=== PATIENT | male | born 1960 | race Two or more races ===

== ENCOUNTER 2020-05-10 23:29 | Emergency (ER) | payer OTHER ==
[2020-05-10] MEDS ORDERED: Ketorolac 30 MG/ML SDV IM ONE (23:44)
[2020-05-10] MEDS: Ibuprofen 600 MG Tab ONE ×2 (23:51→23:53)
[2020-05-10] MEDS ORDERED: Ibuprofen 600 MG Tab PO ONE (23:52)
--- NOTE | 2020-05-11 00:21 | CT ---
INDICATION: Right posterior headache TECHNIQUE: CT Head without i.v. contrast. COMPARISON: None FINDINGS: CSF space: The ventricles are normal for age. Brain: No evidence of mass, acute infarction or hemorrhage is seen. No mass-effect or midline shift is seen. The brain parenchyma is otherwise normal in appearance with preservation of the ring-white matter junction. Calvarium: The visualized paranasal sinuses are well aerated. The mastoid air cells are clear. The visualized orbits are grossly unremarkable. The calvarium is unremarkable in appearance with no fractures identified. IMPRESSION: 1. No evidence of acute infarction, intracranial hemorrhage, or mass-effect seen. Please note that all CT scans at this facility use dose modulation, iterative reconstruction, and/or weight-based dosing when appropriate to reduce radiation dose to as low as reasonably achievable. Dictated by: Refugio Lyn MD @ 05/11/2020 00:20:34 (Electronically Signed)
--- NOTE | 2020-05-11 00:30 | EDM.PDOC ---
ED HPI GENERAL MEDICAL PROBLEM - General Chief Complaint: Headache Stated Complaint: HEADACHE Time Seen by Provider: 05/10/20 23:44 - History of Present Illness INITIAL COMMENTS - FREE TEXT/NARRATIVE: HISTORY AND PHYSICAL: History of present illness: This a 60-year-old gentleman with no history significant for hypertension, diabetes, liver, lung, kidney problems who presents to the ER today secondary to headache that he has been experiencing ever since his mother around [facility] [employer]. Patient denies any recent fevers, shakes, chills, nausea, vomiting, diarrhea, dysuria, frequency, urgency, double vision, blurred vision, slurred speech, neurological deficits, weakness to his upper or lower extremities. Patient reports that the pain is in his right posterior occiput and feels like a sharp stabbing pain that sometimes radiates to the front of his scalp. Patient reports that prior to his mother passing away he never received headaches. Patient reports that the headaches lasted for several weeks and then resolved and over the last couple weeks the headaches have returned. He reports he has an appointment next Saturday with his primary care physician for evaluation of this. Patient is concerned regarding possibility of aneurysms so came to the ER for further evaluation. Patient reports that this is not the worst headache of his life. He does not describe it as a thunderclap headache he reports that the headache comes on gradually and disappears. He denies any exacerbating factors other than possibly watching too much TV at night. He reports that he has tried to cut back the amount of TV BCs noticed that his headache precipitates while he is watching TV. Review of systems: As per history of present illness and below otherwise all systems reviewed and negative. Past medical history: As per history of present illness and as reviewed below otherwise noncontributory. Surgical history: As per history of present illness and as reviewed below otherwise noncontributory. Social history: No reported history of drug or alcohol abuse. Family history: As per history of present illness and as reviewed below otherwise noncontributory. Physical exam: Constitutional: Patient is oriented to person, place, and time. Appears well- developed and well-nourished. No distress. HEENT: Moist mucous membranes Head: Normocephalic and atraumatic Eyes: Right eye exhibits no discharge. Left eye exhibits no discharge. No scleral icterus, pupils equal round reactive to light, extraocular motions intact Neck: Normal range of motion. No tracheal deviation present. Cardiovascular: Normal rate and regular rhythm. Pulmonary: Effort normal, no respiratory distress. Abdominal: No distention Musculoskeletal: Normal range of motion Neuro: A&Ox3. Cranial nerves II-XII grossly intact, 5/5 strength to bilateral upper and lower extremities, sensation intact to bilateral upper and lower extremities, no nystagmus, PERRLA, EOMI, normal speech, proprioception intact to bilateral lower extremities, normal finger to nose test, gait normal Skin: [place], warm and dry. Psychiatric: Normal mood and affect. Behavior is normal. Judgment and thought content normal. Nursing note and vital signs have been reviewed Diagnostics: CT scan head without any pathology. Therapeutics: Patient reports took ibuprofen prior to arrival and is declined any medication here in the ED. Assessment and plan: 60-year-old gentleman who presents ER today secondary to headache has been intermittent since [facility] [employer]. Patient's CT scan in the ED are normal. Patient's vital signs are all within normal limits. Patient be discharged home with instructions to follow-up with his primary care physician as scheduled on Saturday. Patient was advised to try to avoid all TV and strain on the eyes. Reassessment at the time of disposition demonstrates that the patient is in no acute distress. The patient has remained stable throughout the entire ED visit and is without objective evidence for acute process requiring urgent intervention or hospitalization. The patient is stable for discharge, counseling is provided as documented above, discussed symptomatic treatment and specific conditions for return. I have spoken with the patient/caregiver and discussed todays findings, in addition to providing specific details for the plan of care. Questions are answered and there is agreement with the plan. Definitive disposition and diagnosis as appropriate pending reevaluation and review of above. 8:31 PM, 05/11/2020 Follow-up phone call made to your patient with continuity of care. Patient reports he feels improved and has an appointment Saturday with his PCP. Lower Posterior Head Pain Score (Numeric/FACES): 2 - Related Data Allergies Allergy/AdvReac Type Severity Reaction Status Date / Time No Known Allergies Allergy Verified 05/10/20 23:43 Home Meds: Home Meds Ginkgo Biloba 1 tab PO DAILY 08/06/14 [History] Terbinafine HCl [Lamisil] 1 tab PO DAILY 08/06/14 [History] Multivitamin with Minerals [Multiple Vitamin] 1 tab PO DAILY 08/10/14 [History] Past Medical History - Past Health History Medical/Surgical History: Denies Medical/Surgical History - Infectious Disease History Infectious Disease History: Reports: Chicken Pox, Mumps Social & Family History - Family History Family Medical History: No Pertinent Family History - Tobacco Use Tobacco Use Status *Q: Never Tobacco User - Caffeine Use Caffeine Use: Reports: Coffee - Recreational Drug Use Recreational Drug Use: No ED ROS GENERAL - Review of Systems Review Of Systems: See Below ED EXAM, GENERAL - Physical Exam Exam: See Below Course - Vital Signs Last Recorded V/S: Last Vital Signs Temp 97.2 F 05/11/20 00:40 Pulse 66 05/11/20 00:40 Resp 18 05/11/20 00:40 BP 160/96 H 05/11/20 00:40 Pulse Ox 97 05/11/20 00:40 - Orders/Labs/Meds Meds: Medications Discontinued Medications Generic Name Dose Route Start Last Admin Trade Name Gabriela PRN Reason Stop Dose Admin Ibuprofen Confirm 05/10/20 23:49 05/10/20 23:53 Motrin Administered 05/10/20 23:50 Not Given Dose 600 mg .ROUTE .STK-MED ONE Ibuprofen 600 mg 05/10/20 23:52 05/10/20 23:53 Motrin PO 05/10/20 23:53 Not Given ONETIME ONE Ketorolac Tromethamine 30 mg 05/10/20 23:44 05/10/20 23:51 Toradol IM 05/10/20 23:45 Not Given ONETIME ONE Departure - Departure Time of Disposition: 00:29 Disposition: Home, Self-Care 01 Condition: Good Clinical Impression: Tension-type headache - Discharge Information Instructions: General Headache Without Cause Referrals: PCP,None [Primary Care Provider] - Forms: ED Department Discharge Additional Instructions: Your seen and evaluated in the ER today secondary to your headache. You have been given a copy of your CT scan to take to your doctor next week. Please get plenty rest, avoid watching too much TV or reading small print books or anything else that might cause strain in your eyes. You can take ibuprofen and Tylenol as needed for your headache. The following information is given to patients seen in the emergency department who are being discharged to home. This information is to outline your options for follow-up care. We provide all patients seen in our emergency department with a follow-up referral. The need for follow-up, as well as the timing and circumstances, are variable depending upon the specifics of your emergency department visit. If you don't have a primary care physician on staff, we will provide you with a referral. We always advise you to contact your personal physician following an emergency department visit to inform them of the circumstance of the visit and for follow-up with them and/or the need for any referrals to a consulting specialist. The emergency department will also refer you to a specialist when appropriate. This referral assures that you have the opportunity for follow-up care with a specialist. All of these measure are taken in an effort to provide you with optimal care, which includes your follow-up. Under all circumstances we always encourage you to contact your private physician who remains a resource for coordinating your care. When calling for follow-up care, please make the office aware that this follow-up is from your recent emergency room visit. If for any reason you are refused follow-up, please contact the [facility] Emergency Department at and asked to speak to the emergency department charge nurse. [facility] - [facility] [address] [place] [id number] [facility] [address] [place] [id number] Sepsis Event Note (ED) - Evaluation Sepsis Screening Result: No Definite Risk
[2020-05-11 00:45] VITALS: BP 160/96; PULSE 66
== END 2020-05-11 00:40 | disposition home or self-care (01) ==
LOC: MW.ED 23:29
DX: G44.209 Tension-type headache, unspecified, not intractable (principal)
CPT/HCPCS: 70450; 70450-26; 99283-25

== ENCOUNTER 2020-07-24 18:29 | Emergency (ER) | payer OTHER ==
[2020-07-24] MEDS ORDERED: Aspirin 81 MG Tab.Chew PO ONE (19:41)
[2020-07-24 20:27] LABS: BLOOD UREA NITROGEN,BUN 22 mg/dL (7.0-18.0); CHLORIDE,CL 103 mmol/L (98-107); GLUCOSE RANDOM 100 mg/dL (74-106); POTASSIUM,K 4.4 mmol/L (3.5-5.1); SODIUM,NA 138 mmol/L (136-148)
--- NOTE | 2020-07-24 20:57 | CR ---
HISTORY: Shortness of breath. TECHNIQUE: Portable frontal view of the chest. COMPARISON: None. FINDINGS: No airspace consolidation. Eventration of the right hemidiaphragm. No pleural effusion or pneumothorax. Pulmonary vasculature is within normal limits. Cardiomediastinal silhouette size is normal. Tortuous thoracic aorta. IMPRESSION: No acute cardiopulmonary abnormality. Dictated by Mark Parra MD @ Jul 24 2020 8:53PM Signed by Dr. Mark Parra @ Jul 24 2020 8:55PM
--- NOTE | 2020-07-24 21:19 | EDM.PDOC ---
ED HPI GENERAL MEDICAL PROBLEM - General Chief Complaint: Upper Extremity Injury/Pain Stated Complaint: PAIN IN LEFT ARM Time Seen by Provider: 07/24/20 19:07 - History of Present Illness INITIAL COMMENTS - FREE TEXT/NARRATIVE: CHIEF COMPLAINT(S): Left arm pain HISTORY OF PRESENT ILLNESS: This is a 60-year-old man with a past medical history of hypertension and migraine headaches who comes to the emergency department with a chief complaint of left arm pain. The patient states that he started to experience pain in his left arm located throughout his whole arm which he describes as sharp and achy intermittent with squeezing sensation in his bicep and forearm. He states that he tried to sleep and he was able to and it improved on its own however today while he was working out he had to stop because the pain worsened. He states that he normally does 20 to 25-minute workouts however around 18 minutes into the workout his arm pain worsened so bad that he had to stop. He denies any chest pain but felt some discomfort radiate from his left arm into the left side of his chest. He states that when he stopped working out the pain went away and then it returned again. He denies any diaphoresis, nausea or vomiting. He states that he did try 800 mg of ibuprofen for pain relief. He states that movement does not seem to really seem to exacerbate it. He denies any numbness, tingling or weakness. 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 He denies any history of diabetes mellitus, CAD, CHF, COPD or asthma. He denies any recent travel or recent surgery denies any history of PE or DVT. He states that he does not know if CAD or CHF runs in his family however everybody does have cancer as he has lost 5 siblings and his parents to cancer. These cancers include pancreatic and lung cancer. He denies any weight loss or night sweats. REVIEW OF SYSTEMS: Constitutional: Denies fever, chills. Eyes: Denies eye pain Ears, Nose, Mouth, & Throat: Denies earache Cardiovascular: Denies chest pain Respiratory: Denies shortness of breath Gastrointestinal: Denies Nausea, vomiting, diarrhea, hematochezia. Genitourinary: Denies hematuria Skin:Denies a rash MSK: Positive for left arm pain. Neurological: Denies blurred vision Psychiatric: Denies depression PAST MEDICAL HISTORY: As per history of present illness and as reviewed below otherwise noncontributory. SURGICAL HISTORY: As per history of present illness and as reviewed below other rivera noncontributory. SOCIAL HISTORY: As per history of present illness and as reviewed below otherwise noncontributory. FAMILY HISTORY: As per history of present illness and as reviewed below other rivera noncontributory. EXAMINATION OF ORGAN SYSTEMS/BODY AREAS: Constitutional: Blood pressure was 145/86, heart rate 67, respiratory rate 18 with an oxygen saturation of 96% on room air. Temperature 36.1 General: Overall well-appearing man who is in no acute distress. Psychiatric: Appropriate mood and affect. Eyes: No scleral icterus or conjunctival erythema ENMT: Moist mucous membranes. No pharyngeal erythema Cardiovascular: Regular, rate, and rhythm. No gallops, murmurs, or rubs. Bilateral upper extremity pulses symmetric and intact. No peripheral edema. No JVD. Respiratory: Lungs clear to auscultation bilaterally. No wheezes, rales, or rhonchi. Gastrointestinal: Soft, non-tender, non-distended. Normoactive bowel sounds Genitourinary: No suprapubic tenderness Musculoskeletal: Normal range of motion. There is no obvious tenderness of the forearm or arm when palpating. No obvious deformity. No overlying skin changes. Patient has full range of motion of all of his joints in his upper extremities. Skin: No lesions or abrasions. Neurological: Alert, GCS 15 strength and sensation grossly intact. MEDICAL DECISION MAKING AND COURSE IN THE ED WITH INTERPRETATION/REVIEW OF DIAGNOSTIC STUDIES: This is a 60-year-old man with a past medical history of hypertension who comes to the emergency department with acute onset exertional left arm pain which is relieved at rest. At this time given that the patient has just recently had a new job which is requiring lifting this could be musculoskeletal however there is a component that is similar to stable angina. We did obtain an EKG which did not reveal any acute signs of ischemia. Will undergo a cardiac work-up. We will provide the patient with aspirin 325 mg by mouth and obtain a chest x-ray. We placed the patient on cardiac monitoring and pulse oximetry. Laboratory: CBC is unremarkable. BMP reveals elevated BUN at 22 otherwise unremarkable. Magnesium is elevated at 2.6. Troponin is negative. Time: 1922 Twelve-lead EKG interpreted by myself. Normal sinus rhythm at a rate of 61beats per minute. Normal axis. NV interval is 182ms. QRS duration is 116ms. ST segments are normal without elevations or depressions. No T wave inversions there is a Q wave in lead aVL. There is a nonspecific intraventricular conduction delay hypertrophy not noted. No prior EKGs in our interpretation sinus rhythm with nonspecific intraventricular conduction delay The radiological images were viewed by myself along with reading the report from the radiologist. Chest x-ray does not reveal any acute cardiopulmonary process. Given the duration of the patient's symptoms only 1 troponin is needed at this time. I did discuss with him my concern about stable angina. I discussed that we will be placing him on a cardiology follow-up list and that he need to follow-up with cardiology for further evaluation. He is to return for any new or worsening symptoms such as chest pain, shortness of breath or passing out. I discussed that this could all be musculoskeletal pain and discussed pain management strategies with him. He was amenable to discharge at this time and had no further questions. DISPOSITION: The patient was discharged home in stable condition. The patient will follow up with cardiology within 2 to 3 days CONDITION: Fair PROCEDURES: None FINAL IMPRESSION(S)/DIAGNOSES: 1. Acute left arm pain, possible musculoskeletal strain. 2. Possible anginal symptoms Rashel Lomeli M.D. Left arm Pain Score (Numeric/FACES): 8 - Related Data Allergies Allergy/AdvReac Type Severity Reaction Status Date / Time No Known Allergies Allergy Verified 07/24/20 18:49 Home Meds: Home Meds amLODIPine [Norvasc] 5 mg PO DAILY 07/24/20 [History] Past Medical History - Past Health History Medical/Surgical History: Denies Medical/Surgical History Cardiovascular History: Reports: Hypertension - Infectious Disease History Infectious Disease History: Reports: Chicken Pox, Measles, Mumps Social & Family History - Family History Family Medical History: No Pertinent Family History - Tobacco Use Tobacco Use Status *Q: Never Tobacco User - Caffeine Use Caffeine Use: Reports: Coffee, Soda - Recreational Drug Use Recreational Drug Use: No Review of Systems - Review of Systems Review Of Systems: See Below ED EXAM, GENERAL - Physical Exam Exam: See Below Course - Vital Signs Last Recorded V/S: Last Vital Signs Temp 36.0 C L 07/24/20 21:30 Pulse 58 L 07/24/20 21:30 Resp 18 07/24/20 21:30 BP 154/94 H 07/24/20 21:30 Pulse Ox 95 07/24/20 21:30 - Orders/Labs/Meds Labs: Laboratory Tests 07/24/20 07/24/20 Range/Units 19:57 19:57 WBC 4.38 (4.0-11.0) K/uL RBC 4.89 (4.50-5.90) M/uL Hgb 14.8 (13.0-17.0) g/dL Hct 42.8 (38.0-50.0) % MCV 87.5 (80.0-98.0) fL MCH 30.3 (27.0-32.0) pg MCHC 34.6 (31.0-37.0) g/dL RDW Std Deviation 43.2 (28.0-62.0) fl RDW Coeff of Ce 14 (11.0-15.0) % Plt Count 250 (150-400) K/uL MPV 9.60 (7.40-12.00) fL Neut % (Auto) 40.0 L (48.0-80.0) % Lymph % (Auto) 46.6 H (16.0-40.0) % [place] % (Auto) 9.8 (0.0-15.0) % Eos % (Auto) 3.4 (0.0-7.0) % Baso % (Auto) 0.2 (0.0-1.5) % Neut # (Auto) 1.8 (1.4-5.7) K/uL Lymph # (Auto) 2.0 (0.6-2.4) K/uL [place] # (Auto) 0.4 (0.0-0.8) K/uL Eos # (Auto) 0.2 (0.0-0.7) K/uL Baso # (Auto) 0.0 (0.0-0.1) K/uL Nucleated RBC % 0.0 /100WBC Nucleated RBCs # 0 K/uL Sodium 138 (136-148) mmol/L Potassium 4.4 (3.5-5.1) mmol/L Chloride 103 (98-107) mmol/L Carbon Dioxide 28.0 (21.0-32.0) mmol/L BUN 22 H (7.0-18.0) mg/dL Creatinine 1.2 (0.8-1.3) mg/dL Est Cr Clr Drug Dosing 61.97 mL/min Estimated GFR (MDRD) > 60.0 ml/min Glucose 100 (74-106) mg/dL Calcium 8.6 (8.5-10.1) mg/dL Magnesium 2.6 H (1.8-2.4) mg/dL Troponin I < 0.050 (0.000-0.056) ng/mL Meds: Medications Discontinued Medications Generic Name Dose Route Start Last Admin Trade Name Freq PRN Reason Stop Dose Admin Aspirin 324 mg 07/24/20 19:41 07/24/20 19:49 Aspirin PO 07/24/20 19:42 324 mg ONETIME ONE Administration Departure - Departure Time of Disposition: 21:16 Disposition: Home, Self-Care 01 Condition: Fair Clinical Impression: Strain of upper arm Qualifiers: Encounter type: initial encounter Laterality: left Qualified Code(s): S46.912A - Strain of unspecified muscle, fascia and tendon at shoulder and upper arm level, left arm, initial encounter Chest pain Qualifiers: Chest pain type: unspecified Qualified Code(s): R07.9 - Chest pain, unspecified - Discharge Information *PRESCRIPTION DRUG MONITORING PROGRAM REVIEWED*: No *COPY OF PRESCRIPTION DRUG MONITORING REPORT IN PATIENT IRENE: No Instructions: Muscle Strain, [id number], Pain Medicine Instructions, [id number], Angina, [id number] Referrals: Aram Canada MD [Primary Care Provider] - Cheryle Bird MD [Physician] - Forms: ED Department Discharge Additional Instructions: You were evaluated today on an emergent basis. Given the increased workload you have at work this could be secondary to muscle strain. I do recommend Tylenol and Motrin for the next 2 days and then as needed after that. You are welcome to ice the area 20 minutes 4 times a day. In addition this could be atypical presentation of heart issues and I do recommend that you follow-up with cardiology within 2 to 3 days. If you have any worsening pain, chest pain, passout or shortness of breath please return to the emergency department. Please use: Tylenol 500-1000mg every 6 hours (DO NOT TAKE MORE THAN 4000mg in 1 day) Ibuprofen 400mg every 6 hours (Take with food as it can cause ulcers, GI upset) Example schedule: 8:00 AM (Tylenol 500-1000mg) 11:00 AM (Ibuprofen 400mg) 2:00 PM (Tylenol 500-1000mg) 5:00 PM (Ibuprofen 400mg) In addition to Tylenol and Motrin you may use over the counter creams such as Voltaren Cream or Lidocaine Cream (Lidoderm) as needed 4 times a day for symptomatic relief. Ice the area 20 minutes 4 times per day [facility] [address] [place] [id number] [facility] [address] [place] [id number] The patient is informed of any results of their evaluation and diagnostic workup and all questions are answered. They are given discharge instructions and return precautions. The patient is stable for discharge. The patient states they understand and agree with the plan and that they will return if their symptoms get worse or if they have any new concerns. The following information is given to patients seen in the emergency department who are being discharged to home. This information is to outline your options for follow-up care. We provide all patients seen in our emergency department with a follow-up referral. The need for follow-up, as well as the timing and circumstances, are variable depending upon the specifics of your emergency department visit. If you don't have a primary care physician on staff, we will provide you with a referral. We always advise you to contact your personal physician following an emergency department visit to inform them of the circumstance of the visit and for follow-up with them and/or the need for any referrals to a consulting specialist. The emergency department will also refer you to a specialist when appropriate. This referral assures that you have the opportunity for follow-up care with a specialist. All of these measure are taken in an effort to provide you with optimal care, which includes your follow-up. Under all circumstances we always encourage you to contact your private physician who remains a resource for coordinating your care. When calling for follow-up care, please make the office aware that this follow-up is from your recent emergency room visit. If for any reason you are refused follow-up, please contact the [facility] Emergency Department at and asked to speak to the emergency department charge nurse. Sepsis Event Note (ED) - Evaluation Sepsis Screening Result: No Definite Risk - Focused Exam Vital Signs: Vital Signs Temp Pulse Resp BP Pulse Ox 07/24/20 21:30 36.0 C L 58 L 18 154/94 H 95 07/24/20 20:04 59 L 147/84 H 95 07/24/20 18:45 36.1 C 67 18 145/86 H 96
[2020-07-24 21:31] VITALS: BP 154/94; PULSE 58
== END 2020-07-24 21:31 | disposition home or self-care (01) ==
LOC: MW.ED 18:29
DX: S46.912A Strain of unspecified muscle, fascia and tendon at shoulder and upper arm level, left arm, initial encounter (principal); R07.9 Chest pain, unspecified; R79.1 Abnormal coagulation profile; E83.41 Hypermagnesemia; I10 Essential (primary) hypertension; Z79.899 Other long term (current) drug therapy; X58.XXXA Exposure to other specified factors, initial encounter
CPT/HCPCS: 36415; 71045; 80048; 83735; 84484; 85025; 93005; 99284; A9270; 93010; 99283

== ENCOUNTER 2021-12-01 08:50 | Emergency (ER) | payer OTHER ==
[2021-12-01] MEDS ORDERED: Ketorolac 30 MG/ML SDV IM ONE (09:10)
[2021-12-01 09:23] VITALS: BP 141/95; PULSE 58
== END 2021-12-01 09:50 | disposition home or self-care (01) ==
LOC: MW.ED 08:50
DX: M54.16 Radiculopathy, lumbar region (principal)
CPT/HCPCS: 96372; 99283; J1885

== ENCOUNTER 2022-03-06 10:25 | Emergency (ER) | payer OTHER | END 2022-03-06 13:05 | LOC: MW.ED 10:25 | DX: S60.042A Contusion of left ring finger without damage to nail, initial encounter (principal); W23.0XXA Caught, crushed, jammed, or pinched between moving objects, initial encounter | CPT/HCPCS: 73140-26-F3; 73140-F3; 99283 ==

== ENCOUNTER 2023-08-01 11:47 | Emergency (ER) | payer OTHER ==
[2023-08-01 12:20] VITALS: BP 126/82; PULSE 63
== END 2023-08-01 13:37 | disposition home or self-care (01) ==
LOC: MW.ED 11:47
DX: M19.012 Primary osteoarthritis, left shoulder (principal); I10 Essential (primary) hypertension; Z86.19 Personal history of other infectious and parasitic diseases; Z75.8 Other problems related to medical facilities and other health care
CPT/HCPCS: 73030-26-LT; 73030-LT; 99283